=== PATIENT | male | born 1980 | race Two or more races ===

== ENCOUNTER 2017-04-11 04:57 | Emergency (ER) | payer SELFPAY ==
[~2017-04-11] VITALS: Ht 167.6 cm; Wt 63.5 kg
[2017-04-11] MEDS ORDERED: LIDOCAINE HCL 2% 20 ML VIAL ONE (05:25)
[2017-04-11] MEDS ORDERED: NEOMY/BACITRA/POLYMYXIN B OINT UD PACKET TP ONE ×2 (05:30→05:42)
[2017-04-11] MEDS ORDERED: TDAP DIPH,PERTUSS,TET VAC/PF 0.5 ML DISP.SYRIN IM ONE ×2 (05:30→05:43)
[2017-04-11] MEDS ORDERED: LIDOCAINE HCL 2% 20 ML VIAL IJ ONE (05:30)
== END 2017-04-11 05:54 | disposition home or self-care (01) ==
LOC: ER 05:00
DX: T75.4XXA Electrocution, initial encounter (principal); Z59.0 Homelessness; F17.200 Nicotine dependence, unspecified, uncomplicated; W86.8XXA Exposure to other electric current, initial encounter; Y93.89 Activity, other specified; Y92.89 Other specified places as the place of occurrence of the external cause; Y99.8 Other external cause status
CPT/HCPCS: 10120; 90471; 90715; 99284; A4663; J3490

== ENCOUNTER 2019-02-05 12:27 | Emergency (ER) | payer MEDICAID ==
[~2019-02-05] VITALS: Ht 167.6 cm; Wt 63.5 kg
[2019-02-05] MEDS ORDERED: IV NORMAL SALINE 1000 ML BAG IV ONE (12:45)
[2019-02-05] MEDS ORDERED: IV NORMAL SALINE 250 ML IV ONE (12:47)
[2019-02-05] MEDS ORDERED: IOHEXOL 300MG/ML 100 ML INFUS..BTL ONE (12:47)
[2019-02-05] MEDS ORDERED: SWABABLE VALVE TRANSFER SET EA MC ONE (12:47)
[2019-02-05 12:58] LABS: BASOPHILS # (AUTO) 0.1 K/uL (0.0-8.0); BASOPHILS % (AUTO) 0.5 % (0.0-2.0); EOSINOPHILS # (AUTO) 0.1 K/uL (0.0-0.7); EOSINOPHILS % (AUTO) 0.6 % (0.0-7.0); HEMATOCRIT 40.6 % (36.7-47.1); HEMOGLOBIN 13.4 g/dL (12.5-16.3); LYMPHOCYTES # (AUTO) 2.2 K/uL (20.0-40.0); LYMPHOCYTES % (AUTO) 18.6 % (20.5-51.5); MEAN CORPUSCULAR HEMOGLOBIN 30.5 uug (23.8-33.4); MEAN CORPUSCULAR HGB CONC 33 g/dL (32.5-36.3); MEAN CORPUSCULAR VOLUME 92.6 fL (73.0-96.2); MONOCYTES # (AUTO) 0.9 K/uL (2.0-10.0); MONOCYTES % (AUTO) 7.8 % (0.0-11.0); NEUTROPHILS # (AUTO) 8.6 K/uL (1.8-8.9); NEUTROPHILS % (AUTO) 72.5 % (38.5-71.5); PLATELET COUNT (AUTO) 390 K/uL (152-348); RED BLOOD CELL COUNT(AUTO) 4.38 MIL/uL (4.06-5.63); WHITE BLOOD COUNT (AUTO) 11.9 K/uL (3.6-10.2)
[2019-02-05 13:00] LABS: CREATININE 0.9 mg/dL (0.6-1.3); POTASSIUM 3.4 mmol/L (3.5-5.1)
--- NOTE | 2019-02-05 14:22 | NUR ---
PT RESTING, AROUSABLE.
--- NOTE | 2019-02-05 15:16 | NUR ---
IV removed. Catheter intact and site benign. Pressure and 4x4 gauze applied to site. No bleeding noted.
--- NOTE | 2019-02-05 15:26 | NUR ---
Patient given written and verbal discharge instructions. Patient verbalizes understanding of instructions. Patient is ambulatory with steady gait. Refuses offer of detention placement. Patient given list of available shelters in surrounding area. Walked out of ER with no distress noted.
[2019-02-05 15:27] VITALS: BP 115/77
== END 2019-02-05 15:28 | disposition home or self-care (01) ==
LOC: ER 12:27
DX: S20.211A Contusion of right front wall of thorax, initial encounter (principal); S16.1XXA Strain of muscle, fascia and tendon at neck level, initial encounter; S09.90XA Unspecified injury of head, initial encounter; F17.200 Nicotine dependence, unspecified, uncomplicated; F12.10 Cannabis abuse, uncomplicated; Z59.0 Homelessness; V23.4XXA Motorcycle driver injured in collision with car, pick-up truck or van in traffic accident, initial encounter; Y93.89 Activity, other specified; Y92.410 Unspecified street and highway as the place of occurrence of the external cause; Y99.8 Other external cause status
CPT/HCPCS: 36415; 70450; 71045; 71260; 72125; 73030; 74177; 80048; 85025; 99284; Q9967; A4663; J7030; J7050